=== PATIENT | male | born 1945 | race Caucasian/White ===

== ENCOUNTER → 2018-02-19 16:49 | Outpatient (CLI) | payer MEDICARE ==
[2015-10-21 08:33] VITALS: BMI 28.8
[~2018-02-19 16:49] MED LIST: CARDIZEM120 MG PO; FLOMAX0.4 MG PO; GLIMEPIRIDE1 MG PO; GLIMEPIRIDE2 MG PO; JANUMET 50-1,001 TAB PO; LISINOPRIL10 MG PO; LOW DOSE ASPIRI81 M1 PO; MULTIPLE VITAMI1 TA1 PO; NORCO 7.5/325 T1 TA1 PO; PRAVACHOL20 MG PO; ULTRAM50 MG PO; UROCIT-K10 MEQ PO
== END | disposition home or self-care (01) ==
LOC: D.LABREF 16:49
DX: R31.9 Hematuria, unspecified (principal)

== ENCOUNTER 2018-02-28 06:54 | Day surgery (SDC) | payer MEDICARE ==
[~2018-02-28] VITALS: Ht 175.3 cm; Wt 90.3 kg
--- NOTE | ~2018-02-28 | OP ---
PATIENT NAME: SINDHU RICHARD MEDICAL RECORD: [id number] :47 LOCATION:D.OPS ADMISSION DATE: SURGEON: KAIDEN ESPINOSA MD DATE OF OPERATION: 02/28/2018 SURGEON: Kaidne Espinosa MD ANESTHESIA: MAC by Breann Teresa CRNA. DIAGNOSIS: Gross hematuria. PROCEDURE: Cystoscopy. FINDINGS: Obstructive BPH with median lobe obstruction. Prominent prosthetic veins and intraprostatic stones seen. Single ureteral orifices bilaterally in the bladder. No bladder tumors were seen. Large quantities of stone debris was seen in the bladder. BLOOD LOSS: None. CLINICAL HISTORY: This is a 72-year-old male, who was referred with gross hematuria. He has a CT scan of the abdomen and pelvis pending. He does have a history of kidney stones, which were treated in the past by Dr. Blackburn with lithotripsy. As part of his hematuria workup, he is coming to have cystoscopy done today. He is not allergic to any medications and he was given Ancef edge bonder to the OR. He complained of left flank pain, which began recently. DESCRIPTION OF PROCEDURE: We gave the patient IV sedation. He was then placed into dorsal lithotomy position and prepped and draped. A 17-Urdu cystoscope with 30-degree lens was used for visualization. Penile urethra showed no strictures. Prostatic urethra shows no enlargement of the lateral lobes. However, the prostatic urethra was quite vascular. There were stones seen within the urethral submucosa. The bladder neck was quite tall and obstructive. Going into the bladder, there were single ureteral orifices on each side. No bladder tumors were seen. A large quantity of stone debris was seen in the floor of the bladder. This was irrigated out of the bladder using an Ellik evacuator. The bladder was then emptied through the scope after we looked in once more to verify that no further stone particles were in the bladder. The scope was then removed. The patient does have a CT scan of the abdomen and pelvis pending to determine what type of stone burden he has. I have started him on tamsulosin for both stone passage and for BPH as well as [place] for pain control for renal colic. TRANSINT:[id number] Voice Confirmation ID: [id number] DOCUMENT ID: [id number] KAIDEN ESPINOSA MD at 2544 CC: [id number] DICTATION DATE: 02/28/18 1305 SENIOR SOLUTIONS CONSULTANT: 02/28/18 1313 [facility] 02/28/18 [place] [id number] [place] [id number]
[~2018-02-28 06:54] MED LIST changes: -FLOMAX0.4 MG PO; -NORCO 7.5/325 T1 TA1 PO; -ULTRAM50 MG PO; -UROCIT-K10 MEQ PO
[2018-02-28 07:12] LABS: HEMOGLOBIN 13.7 g/dL (13.5-17.5); MCH 30.7 pg (26.0-34.0); MCHC 34.3 g/dL (31.0-37.0); MCV 89.7 fL (80.0-100.0); MEAN PLATELET VOLUME 11.5 fL (7.4-10.4); RBC 4.46 10x6/uL (4.20-6.10); RDW 13.5 % (11.5-14.5)
[2018-02-28 07:51] VITALS: BP 128/67; Ht 175.3 cm; Wt 90.3 kg
[2018-02-28 08:10] LABS: ANION GAP 14.9 mmol/L (8-16); CALCIUM 9.1 mg/dL (8.5-10.1); CARBON DIOXIDE 26.5 mmol/L (21.0-32.0); CREATININE - SERUM 1.6 mg/dL (0.6-1.3); POTASSIUM - SERUM 4.4 mmol/L (3.5-5.1)
[2018-03-08 10:24] LABS: CALCULI - AMMONIUM ACID URATE 100 % (()); CALCULI - COMMENT Note: (())
[2018-05-01] MEDS ORDERED: UROCIT-K10 MEQ PO (15:37)
[2018-05-01] MEDS ORDERED: ULTRAM50 MG PO (15:38)
== END 2018-02-28 14:30 | disposition home or self-care (01) ==
LOC: D.OPS 06:54 → D.PAN 09:15 → D.OPS 09:30 → D.PAN 09:45 → D.OPS 14:30
PROVIDERS: Anesthesiology; Urology
DX: N40.1 Benign prostatic hyperplasia with lower urinary tract symptoms (principal); N13.8 Other obstructive and reflux uropathy; R31.0 Gross hematuria; N21.0 Calculus in bladder

== ENCOUNTER → 2018-03-01 13:08 | Outpatient (CLI) | payer MEDICARE ==
[2018-02-28 07:51] VITALS: BMI 29.4
[~2018-03-01 13:08] MED LIST changes: +FLOMAX0.4 MG PO; +NORCO 7.5/325 T1 TA1 PO; +ULTRAM50 MG PO; +UROCIT-K10 MEQ PO
== END | disposition home or self-care (01) ==
LOC: D.CT 13:00
DX: R31.0 Gross hematuria (principal)

== ENCOUNTER 2018-03-06 08:28 | Day surgery (SDC) | payer MEDICARE ==
[~2018-03-06] VITALS: Ht 175.3 cm; Wt 90.3 kg
--- NOTE | ~2018-03-06 | OP ---
PATIENT NAME: SINDHU RICHARD MEDICAL RECORD: [id number] :47 LOCATION:D.[facility] ADMISSION DATE: SURGEON: JADON ESPINOSA MD DATE OF OPERATION: 03/06/2018 SURGEON: Jadon Espinosa MD ANESTHESIA: General anesthesia by Romeo Bruner CRNA. DIAGNOSIS: Left 2 cm renal stone. PROCEDURE: Cystoscopy, left retrograde pyelogram, left ureteral stent insertion 6-Kyrgyz x 26 cm with string attached. FINDINGS: Radiolucent left renal stone with left hydronephrosis. BLOOD LOSS: None. CLINICAL HISTORY: This is a 72-year-old male, who was initially being investigated for gross hematuria. On cystoscopy, he was found to have an obstructive prostate with large prostatic veins. He did have a CT scan obtained and this showed a 2 cm stone in the left renal pelvis causing UPJ obstruction. He comes today to have a left ureteral stent inserted. This is to relieve his obstruction and relieve his pain. Eventually, he would require a PCNL if we cannot get the stone removed any other way. He is not allergic to any medications. He was given Ancef loss prevention associate to the OR. DESCRIPTION OF PROCEDURE: The patient was given general anesthetic. He was placed in the dorsal lithotomy position and prepped and draped. Preoperative fluoroscopy did not reveal any radiodense stone in the left renal region. A 21-Kyrgyz cystoscope with 30-degree lens was used for visualization. No penile urethral strictures were seen. Obstructive BPH was seen. The left ureteral orifice was visualized. We inserted an open-ended ureteral catheter into the left ureteral orifice and retrograde pyelogram was performed by injecting diluted contrast. Hydronephrosis was seen in the left renal pelvis, but I did not visualize a stone. We continued to inject more contrast and eventually we could see the stone as a rectangular shaped filling defect against the contrast. Through the lumen of the ureteral catheter, we inserted a Sensor wire up in the renal pelvis. The ureteral catheter was then removed, leaving the wire in place. Over the wire, we inserted the 6-Kyrgyz x 26 cm ureteral stent. Once the stent was in correct position, we withdrew the wire to allow the proximal end of the stent to coil in the renal pelvis. The distal end of the stent was pushed into the bladder using a pusher. The wire was then entirely removed. The bladder was then emptied through the scope and then the scope was removed. The string on the distal end of the stent is maintained. It hangs out of the urethra. It was tied to itself in a knot and cut shorter. The patient will be awakened and brought to recovery room. I will start him on potassium citrate to dissolve a potential uric acid stone. TRANSINT:[id number] Voice Confirmation ID: [id number] DOCUMENT ID: [id number] OPERATIVE REPORT [id number] HILARY,JADON FREEMAN MD at 1131 CC: [id number] DICTATION DATE: 03/06/18 1042 BODY COMPONENT ENGINEER: 03/06/18 1111 REG [facility] [address] [place] [address]
[~2018-03-06 08:28] MED LIST changes: -FLOMAX0.4 MG PO; -NORCO 7.5/325 T1 TA1 PO; -ULTRAM50 MG PO; -UROCIT-K10 MEQ PO
[2018-03-06 09:02] LABS: HEMATOCRIT 37.8 % (42.0-54.0); HEMOGLOBIN 12.5 g/dL (13.5-17.5); MCH 30.3 pg (26.0-34.0); MCHC 33.1 g/dL (31.0-37.0); MCV 91.5 fL (80.0-100.0); RBC 4.13 10x6/uL (4.20-6.10); RDW 13.2 % (11.5-14.5); WBC 11.1 10x3/uL (4.8-10.8)
[2018-03-06 09:09] LABS: ANION GAP 13.9 mmol/L (8-16); CALCIUM 8.8 mg/dL (8.5-10.1); CREATININE - SERUM 1.6 mg/dL (0.6-1.3); POTASSIUM - SERUM 4.9 mmol/L (3.5-5.1)
[2018-03-06] MEDS ORDERED: FLOMAX0.4 MG PO (09:24)
[2018-03-06 09:26] VITALS: Ht 175.3 cm; Wt 90.3 kg
[2018-05-01] MEDS ORDERED: UROCIT-K10 MEQ PO (15:37)
[2018-05-01] MEDS ORDERED: ULTRAM50 MG PO (15:38)
== END 2018-03-06 12:40 | disposition home or self-care (01) ==
LOC: D.OPS 08:28 → D.PAN 10:15 → D.OPS 10:15
PROVIDERS: Anesthesiology
DX: N13.2 Hydronephrosis with renal and ureteral calculous obstruction (principal); Z01.812 Encounter for preprocedural laboratory examination

== ENCOUNTER → 2018-03-12 17:55 | Outpatient (CLI) | payer MEDICARE ==
[2018-03-06 09:26] VITALS: BMI 29.4
[~2018-03-12 17:55] MED LIST changes: +FLOMAX0.4 MG PO; +NORCO 7.5/325 T1 TA1 PO; +ULTRAM50 MG PO; +UROCIT-K10 MEQ PO
== END | disposition home or self-care (01) ==
LOC: D.LABREF 17:55
DX: N39.0 Urinary tract infection, site not specified (principal)

== ENCOUNTER → 2018-04-11 08:32 | Outpatient (CLI) | payer MEDICARE ==
[2018-03-06 09:26] VITALS: BMI 29.4
== END | disposition home or self-care (01) ==
LOC: D.CT 08:32
DX: N20.0 Calculus of kidney (principal)

== ENCOUNTER 2018-05-02 05:55 | Day surgery (SDC) | payer MEDICARE ==
[2018-05-01 17:12] LABS: HEMATOCRIT 37.9 % (42.0-54.0); HEMOGLOBIN 12.6 g/dL (13.5-17.5); MCH 29.9 pg (26.0-34.0); MCHC 33.2 g/dL (31.0-37.0); MCV 89.8 fL (80.0-100.0); MEAN PLATELET VOLUME 10.9 fL (7.4-10.4); RBC 4.22 10x6/uL (4.20-6.10); RDW 13.9 % (11.5-14.5); WBC 8.8 10x3/uL (4.8-10.8)
[2018-05-01 18:14] LABS: ANION GAP 12.9 mmol/L (8-16); CALCIUM 9.5 mg/dL (8.5-10.1); CARBON DIOXIDE 29.2 mmol/L (21.0-32.0); CREATININE - SERUM 1.3 mg/dL (0.6-1.3); POTASSIUM - SERUM 5.1 mmol/L (3.5-5.1)
[~2018-05-02] VITALS: Ht 175.3 cm; Wt 83.5 kg
--- NOTE | ~2018-05-02 | OP ---
PATIENT NAME: SINDHU RICHARD MEDICAL RECORD: [id number] :47 [facility] DATE: SURGEON: JADON ESPINOSA MD DATE OF OPERATION: 05/02/2018 SURGEON: Jadon Espinosa MD ANESTHESIA: General anesthesia by Jadon Dick MD DIAGNOSIS: Right renal stone, 12-mm. PROCEDURES: Cystoscopy, right percutaneous nephrolithotomy, removal of the right ureteral stent. FINDINGS: Radiolucent 12-mm stone. BLOOD LOSS: Minimal. CLINICAL HISTORY: This is a 73-year-old male, who initially presented with right flank pain when he had a 20-mm stone obstructing the UP junction. At that time, I placed the right ureteral stent. The stone was radiolucent on fluoroscopy, but it was seen on the CT scan. I assumed that this may be a uric acid stone and I started him on alkalinization of the urine. In spite of being alkalinized, followup CT scan showed reduction in stone size to 12mm. He is insistent that he cannot tolerate the potassium citrate medication. He wished to have the stone surgically removed. Therefore, he is coming to have a percutaneous nephrolithotomy to remove the stone. He is not allergic to any medications. He was given Ancef electronic device repairer to the OR. Earlier this morning, Dr. Smith, provided access via a mid pole nephroureteral tube insertion. The tube went down into the bladder. DESCRIPTION OF PROCEDURE: The patient was given induction of general anesthesia while he was in supine position on the stretcher. His legs were then frog legged and then we prepped and draped him. A rigid cystoscope was used. We went into the bladder and I tried to pull the distal end of the nephroureteral access catheter out through the urethra. However, the catheter seems rather short in length and it would not come out. I therefore abandoned further attempts to remove the catheter. The stent that I placed initially is still in place. We then turned him into prone position on gel rolls holding his sides. All pressure points were padded. He was then prepped and draped. The nephroureteral catheter was accessed using an Amplatz Super Stiff wire. This went down into the bladder. The nephroureteral catheter was then completely removed and discarded. On either side of the Super Stiff wire, a 1-cm incision was made using #15 blade. We then used a dual lumen catheter, which went down into the proximal ureter. Through the second lumen, a Sensor wire was placed down into the bladder. Once the [address], the dual lumen catheter was removed. The 2 wires were remaining in place. We clamped the sensor wire to the drapes as a safety wire. We worked over the Super Stiff wire. The NephroMax tract dilation balloon was inserted and the tract was dilated with 16 atmospheres of pressure. The sheath was then slid down into the renal pelvis. The tract dilation balloon was then deflated and removed entirely. The nephroscope was then introduced. We immediately saw the large stone. A FashionGuide bwbj-E-aqlkji basket was placed around the stone and the stone was entirely removed. The stone is not 20-mm anymore and it seems to be closer to 12 mm. Therefore, this is a uric acid stone, which has partly dissolved with our OPERATIVE REPORT [id number] HILARY,CRISTI potassium citrate treatment. His original CT suggested that there may be other stones in the lower pole. I looked in the upper and lower pole calices and I could not find any other stones. There were some blood clots with some tiny specks of stones incorporated in the blood clot. These were all suctioned out using the [employer] LithoClast ultrasonic modality. At the end of the procedure, I could see no further stones. I suspect that these other stones have already dissolved. Fluoroscopy throughout the case could find no radiodense stones. At this point, I placed a grasping forceps on the stent and removed it entirely. It was sent to pathology for identification only. The scope was then removed. A 24-Upper Sorbian nephrostomy tube was then inserted over the Super Stiff wire. Once the fluoroscopy verified the nephrostomy tube was to be within the renal pelvis and all the wires were removed entirely. The working sheath was also removed. The nephrostomy tube was tied down to the skin using a 2-0 nylon suture. Dressings were applied and the nephrostomy tube was put to bag drainage. The patient will be placed in the hospital for observation. I plan to discharge him from the hospital in a day or so after we remove the nephrostomy tube. TRANSINT:[id number] Voice Confirmation ID: [id number] DOCUMENT ID: [id number] JADON ESPINOSA MD at 1700 CC: [id number] DICTATION DATE: 05/02/18 1546 GROUNDHAND: 05/02/18 1620 REG [facility] [address] [place] [id number]
--- NOTE | ~2018-05-02 | HEMODYNAMI ---
PATIENT:WILLARD RICHARD MEDICAL RECORD: [id number] : 47 LOCATION:MIC ADMISSION DATE: 05/02/18 Generatedon:05/02/201811:07 Patient name: WILLARD RICHARD Patient #: [id number] SSN: DO B: 1945 Date of study: 05/02/2018 Page: Of Hemodynamic Procedure Report Patient Data Patient Demographics Procedure consent was obtained First Name: WILLARD Gender: Male Last Name: HILARY : 1945 Middle Initial: A Age: 73 year(s) Patient #: [id number] Race: Unknown Additional ID: [id number] Contact details [address]: [address] [place] [address] State: [place] City: [place] Zip code: [address] Past Medical History Allergies: No known allergies Admission Admission Data Admission Date: 05/02/2018 Admission Time: 8:00 Height (in.): 69 BSA: 2.06 (m2) Height (cm.): 175.26 BMI: 29.39 (kg/m2) Weight (lbs.): 199 Weight (kg.): 90.26 Procedure Procedure Types Cath Procedure Peripheral Cath Diagnostic Procedure Nephro Perc Neph Uret Cath Procedure Description Procedure Date Procedure Date: 05/02/2018 Procedure Start Time: 10:43 Procedure Staff Name Function Suyapa Broderick RT Silk Finisher Regino Ellis RT Scrub Willard Smith MD Performing Physician Shanon Miles RN Nurse Arlene Rodriguez RN Nurse Procedure Data Cath Procedure Fluoroscopy Diagnostic fluoroscopy Total fluoroscopy Time: 1.9 time: 1.9 min min Diagnostic fluoroscopy Total fluoroscopy dose: 105 dose: 105 mGy mGy Contrast Material Contrast Material Type Amount (ml) Isovue 300 12 Procedure Medications Medication Administration Route Dosage Oxygen etCO2 Nasal cannula 4 l/min Lidocaine 1% added to field 20 Heparin Flush Bag added to field 1 bags (1000units/500ml NS) Versed I.V. 2 mg Fentanyl I.V. 50 mcg unlisted medication I.V. 1 g Fentanyl I.V. 50 mcg Hemodynamics Rest BSA: 2.06 (m2) O2 Consumption: Estimated: 247.48 (ml/min) O2 Consumption indexed : Estimated:120.14 (ml/min/m) Heart Rate: 82 (bpm) Snapshots Pre Cath Intra NCS Post Cath Vital Signs Time Heart Resp SPO2 etCO2 NIBP Rhythm Pain Sedation Rate (ipm) (%) (mmHg) (mmHg) Status Level (bpm) 10:23:26 83 15 98 37.5 111/70(93) NSR 0 (11) 10(A) , No pain 10:27:36 80 14 98 31.5 114/61(86) NSR 0 (11) 10(A) , No pain 10:31:48 80 12 97 31.5 112/65(83) NSR 0 (11) 10(A) , No pain 10:36:00 82 12 97 32.3 117/63(94) NSR 0 (11) 10(A) , No pain 10:40:14 83 14 97 32.3 117/65(86) NSR 0 (11) 10(A) , No pain 10:44:28 84 16 97 34.5 123/67(92) NSR 0 (11) 10(A) , No pain 10:48:42 79 17 96 25.5 112/59(86) NSR 0 (11) 8(A) , No pain 10:52:54 81 14 95 23.3 108/63(85) NSR 0 (11) 8(A) , No pain 10:57:06 80 10 95 25.5 115/65(80) NSR 0 (11) 8(A) , No pain Medications Time Medication Route Dose Verified Delivered Reason Notes Effec tiveness by by 10:45:17 Oxygen etCO2 4 Willard Jacobs Per Nasal l/min Luis Rodriguez RN protocol cannula 10:45:30 Lidocaine 1% added 20ml Willard Lamar Per to vial Luis Smith protocol field MD LOMELI 10:45:43 Heparin Flush added 1 Willard Lamar Per Bag to bags Luis Smith protocol (1000units/500ml field MD LOMELI NS) 10:45:57 Versed I.V. 2 mg Willard Jacobs for Fully awake @ Luis Rodriguez RN sedation 10:50:12 10:46:08 Fentanyl I.V. 50 Willard Jacobs for Fully awake @ [facility] Luis Rodriguez RN sedation 10:50:16 10:46:36 cefipime I.V. 1 g Willard Jacobs Per Luis Rodriguez RN protocol 10:50:04 Fentanyl I.V. 50 Willard Jacobs for [facility] Luis Rodriguez RN sedation Procedure Log Time Note 9:26:01 Patient Height : 69 inches 9:26:05 Patient Weight : 199 lbs 9:26:44 Use device set IR Diagnostic 10:13:12 Regino Ellis RT (R) (CV) sent for patient. Start room use. 10:13:29 Time tracking: Regular hours (M-F 7:00 - 5:00) 10:13:34 Plan of Care:Hemodynamics will remain stable., Cardiac rhythm will remain stable., Comfort level will be maintained., Respiratory function will remain adequate., Patient/ family verbilizes understanding of procedure., Procedure tolerated without complication., Recovers from procedure without complications.. 10:13:40 Patient received from Outpatients to IR Alert and oriented. Tansferred to table in Prone position. 10:13:58 Correct patient and procedure confirmed by team. 10:14:00 Signed procedure consent form obtained from patient. 10:14:01 ECG and BP/O2 sat monitors applied to patient. 10:14:02 Full Disclosure recording started 10:14:03 - 10:14:04 - 10:14:07 H&P Date Dictated: 05/02/2018 H&P Addendum completed by physician on day of procedure. (MUST COMPLETE FOR ALL OUTPATIENTS). 10:14:08 Pre-procedure instructions explained to patient. 10:14:09 Pre-op teaching completed and patient verbalized understanding. 10:14:10 Family in waiting room. 10:14:12 Patient NPO since Midnight. 10:14:23 Patient allergic to No known allergies 10:14:26 Is the patient allergic to Iodine/contrast media? No. 10:14:28 Is patient on blood thinner?No 10:14:32 Patient diabetic? Yes. 10:14:37 If diabetic: On Metformin? No 10:14:41 - 10:14:42 ----Pre-sedation anethsthesia assessment.---- 10:14:45 Previous problem with sedation/anesthesia? No ? 10:14:47 Snore? Yes 10:14:49 Sleep apnea? No 10:14:50 Deviated septum? No 10:14:51 Opens mouth fully? Yes 10:14:53 Sticks out tongue? Yes 10:14:55 Airway obstruction? No ? 10:15:01 Dentures? No ? 10:15:08 IV patent on arrival in right hand with 0.9% NaCl at [facility]. 10:15:10 Alarms reviewed by RVic N. 10:15:10 Sharps counted by scrub and verified by R.N. 10:15:23 LEFT Lumbar area was prepped with chlora-prep and draped in sterile fashion 10:22:15 Vital chart was started 10:22:16 Baseline sample Acquired. 10:40:06 - 10:40:24 KIT, INTRODUCER ACCUSTICK II W/C ([id number]) opened to sterile field. 10:40:25 Tegaderm 4 x 4 (1626W) opened to sterile field. 10:40:26 Sterile Angiographic Pack opened to sterile field. 10:40:27 Bag Decanter (2002S) opened to sterile field. 10:41:19 GLIDE CATHETER 5FR ANGLED 65cm (CG507) opened to sterile field. 10:41:23 - 10:42:49 Physician arrived 10:43:01 --------ALL STOP TIME OUT------ 10:43:02 Final Timeout: patient, procedure, and site verified with staff and physician. All members of the team are in agreement. 10:43:24 Procedure started. 10:43:30 Local anesthetic to Abdominal area with Lidocaine 1% by Willard Smith MD.INITIAL ACCESS ONLY 10:45:17 Oxygen 4 l/min etCO2 Nasal cannula was administered by Arlene Rodriguez RN; Per protocol; 10:45:30 Lidocaine 1% 20ml vial added to field was administered by Willard Smith MD; Per protocol; 10:45:43 Heparin Flush Bag (1000units/500ml NS) 1 bags added to field was administered by Willard Smith MD; Per protocol; 10:45:57 Versed 2 mg I.V. was administered by Arlene Rodriguez RN; for sedation; 10:46:08 Fentanyl 50 mcg I.V. was administered by Arlene Rodriguez RN; for sedation; 10:46:36 cefipime 1 g I.V. was administered by Arlene Rodriguez RN; Per protocol ; 10:50:04 Fentanyl 50 mcg I.V. was administered by Arlene Rodriguez RN; for sedation; 10:50:12 Effectiveness of Versed delivered @ 10:45:57 is: Fully awake 10:50:16 Effectiveness of Fentanyl delivered @ 10:46:08 is: Fully awake 10:50:30 PARAMHOSSEINBHAVESH .035 145 glide wire ([id number]) opened to sterile field. 10:51:59 Procedure ended.(Physican Out) 10:55:23 Fluoroscopy time 01.90 minutes. 10:55:29 Fluoroscopy dose: 105 mGy 10:55:29 Flurop Dose total: 105 10:55:33 Contrast amount:Isovue 300 12ml. 10:55:35 Procedure and supply charges have been captured, reviewed, submitted an d are correct. 10:57:10 Report given to Outpatients. 10:57:36 Vital chart was stopped 10:57:40 Full Disclosure recording stopped Device Usage Item Name Manufacture Quantity Catalog Hospital Part Current Minimal Lot# / Number Charge Number Stock Stock Serial# Code [id number] 1 [id number] 5 INTRODUCER Scientific ACCUSTICK II W/C ([id number]) Tegaderm 4 x 3M 1 1626W [id number] [id number] 5 4 (1626W) Sterile Cardinal 1 [id number] [id number] 719229 5 Angiographic Health Pack Bag Decanter Microtek 1 2001S [id number] 04167 [id number] 5 (2001S) [employer] GLIDE Terumo 1 CG507 641905 [id number] 5 CATHETER 5FR ANGLED 65cm (CG507) [employer] 1 [id number] 366769 [id number] 5 [id number] .035 145 glide wire ([id number]) Signature Audit Wendel Stage Time Signature Unsigned Intra-Procedure 05/02/[address] [facility] RT 10:57:33 AM RT(R) (R) (CV) 05/02/2018 11:07:09 AM Intra-Procedure 05/02/2018 Suyapa Broderick 11:07:54 AM RT(R) [place] [id number] [place] [address]
[~2018-05-02 05:55] MED LIST changes: -NORCO 7.5/325 T1 TA1 PO
[2018-05-02 07:18] LABS: APTT 25.1 SECONDS (22.8-39.4); INR 0.96 (0.85-1.17); PROTIME 12.4 SECONDS (11.6-15.0)
[2018-05-02 07:57] VITALS: BP 104/49; BMI 29.6
[2018-05-02 17:52] VITALS: BP 114/62
[2018-05-02 17:55] VITALS: BP 114/62; BMI 27.2
[2018-05-02 18:03] VITALS: BP 114/62; BMI 27.2
[2018-05-02 23:12] VITALS: BP 109/56
[2018-05-03 04:44] VITALS: BP 100/57
[2018-05-03 08:36] VITALS: BP 99/52
[2018-05-03 10:41] VITALS: Ht 175.3 cm; Wt 83.5 kg
[2018-05-03 12:07] VITALS: BP 109/51
[2018-05-03] MEDS ORDERED: NORCO 7.5/325 T1 TA1 PO (16:28)
[2018-05-10 16:16] LABS: CALCULI - AMMONIUM ACID URATE 25 % (()); CALCULI - COLOR Tan (()); CALCULI - SIZE 12x8x5 mm (()); CALCULI - URIC ACID 70 % (()); CALCULI - WEIGHT 474.4 mg (())
== END 2018-05-03 17:30 | disposition home or self-care (01) ==
LOC: D.MS 05:55 → D.OPS 05:55 → D.PAN 07:30 → D.OPS 08:00 → D.PAN 08:00 → D.MS 17:48 → D.OPS 05-03 17:30
PROVIDERS: Anesthesiology; Specialist; Urology
DX: N20.0 Calculus of kidney (principal); Z01.812 Encounter for preprocedural laboratory examination

== ENCOUNTER → 2018-05-14 16:50 | Outpatient (CLI) | payer MEDICARE ==
[2018-05-03 10:41] VITALS: BMI 27.1
[~2018-05-14 16:50] MED LIST changes: +NORCO 7.5/325 T1 TA1 PO; +POTASSIUM CHLO10 ME1; +ZYLOPRIM100 MG PO
== END | disposition home or self-care (01) ==
LOC: D.LABREF 16:50
DX: R31.0 Gross hematuria (principal); D72.829 Elevated white blood cell count, unspecified

== ENCOUNTER 2018-05-16 07:31 | Inpatient (IN) | payer MEDICARE ==
[2018-05-15 12:47] LABS: HEMATOCRIT 28.2 % (42.0-54.0); HEMOGLOBIN 9.3 g/dL (13.5-17.5); MCH 29.6 pg (26.0-34.0); MCV 89.8 fL (80.0-100.0); MEAN PLATELET VOLUME 10.5 fL (7.4-10.4); RBC 3.14 10x6/uL (4.20-6.10); RDW 14.7 % (11.5-14.5); WBC 19.8 10x3/uL (4.8-10.8)
[2018-05-15 12:57] LABS: ANION GAP 13.3 mmol/L (8-16); CALCIUM 9.1 mg/dL (8.5-10.1); CARBON DIOXIDE 25.4 mmol/L (21.0-32.0); CREATININE - SERUM 1.5 mg/dL (0.6-1.3); POTASSIUM - SERUM 5.7 mmol/L (3.5-5.1)
[~2018-05-16] VITALS: Ht 175.3 cm; Wt 83.5 kg
[~2018-05-16 07:31] MED LIST changes: -POTASSIUM CHLO10 ME1; -ZYLOPRIM100 MG PO
[2018-05-16 09:13] VITALS: BP 93/46; BMI 27.2
[2018-05-16 09:21] VITALS: BP 93/46; BMI 27.2
[2018-05-16 11:44] VITALS: BP 116/65; BMI 27.2
[2018-05-16 12:00] VITALS: BP 116/55
[2018-05-16 18:19] VITALS: BP 111/53
[2018-05-16 21:45] VITALS: BP 95/47
[2018-05-17 05:09] VITALS: BP 100/53
[2018-05-17 06:26] LABS: ALBUMIN 2.9 g/dL (3.4-5.0); ANION GAP 14.5 mmol/L (8-16); BILIRUBIN - TOTAL 0.84 mg/dL (0.2-1.3); CALCIUM 8.6 mg/dL (8.5-10.1); POTASSIUM - SERUM 5.5 mmol/L (3.5-5.1); PROTEIN - SERUM 6.9 g/dL (6.4-8.2)
[2018-05-17 06:27] LABS: CREATININE - SERUM 2.2 mg/dL (0.6-1.3)
[2018-05-17 08:14] VITALS: BP 87/47
[2018-05-17 11:56] VITALS: BP 115/61
[2018-05-17 14:32] LABS: BASOPHILS 0.2 % (0-2); EOSINOPHILS 0.4 % (0-7); HEMATOCRIT 25.6 % (42.0-54.0); HEMOGLOBIN 8.4 g/dL (13.5-17.5); IMMATURE GRANULOCYTES 0.4 % (0-5); LYMPHOCYTES 7.2 % (15-50); MCH 29.2 pg (26.0-34.0); MCHC 32.8 g/dL (31.0-37.0); MCV 88.9 fL (80.0-100.0); MEAN PLATELET VOLUME 11.6 fL (7.4-10.4); MONOCYTES 7.6 % (2-11); NEUTROPHILS 84.2 % (40-80); PLATELET COUNT 176 10x3/uL (130-400); RBC 2.88 10x6/uL (4.20-6.10); RDW 15.1 % (11.5-14.5); WBC 19.8 10x3/uL (4.8-10.8)
[2018-05-17 14:50] VITALS: Ht 175.3 cm; Wt 83.5 kg
[2018-05-17 20:00] VITALS: BP 124/52
[2018-05-18 04:00] VITALS: BP 119/53
[2018-05-18 05:37] LABS: BASOPHILS 0.1 % (0-2); EOSINOPHILS 1.3 % (0-7); HEMATOCRIT 22.4 % (42.0-54.0); IMMATURE GRANULOCYTES 0.2 % (0-5); LYMPHOCYTES 9.4 % (15-50); MCH 29.2 pg (26.0-34.0); MCHC 32.6 g/dL (31.0-37.0); MCV 89.6 fL (80.0-100.0); MEAN PLATELET VOLUME 10.7 fL (7.4-10.4); MONOCYTES 6.1 % (2-11); NEUTROPHILS 82.9 % (40-80); PLATELET COUNT 173 10x3/uL (130-400); RDW 14.8 % (11.5-14.5)
[2018-05-18 05:41] LABS: HEMOGLOBIN 7.8 g/dL (13.5-17.5); WBC 13.5 10x3/uL (4.8-10.8)
[2018-05-18 05:57] LABS: ALBUMIN 2.3 g/dL (3.4-5.0); BILIRUBIN - TOTAL 0.4 mg/dL (0.2-1.3); CALCIUM 8.1 mg/dL (8.5-10.1); CREATININE - SERUM 1.9 mg/dL (0.6-1.3); PROTEIN - SERUM 6.2 g/dL (6.4-8.2); URIC ACID 6.4 mg/dL (2.6-7.2)
[2018-05-18 05:58] LABS: ANION GAP 12.4 mmol/L (8-16); POTASSIUM - SERUM 4.4 mmol/L (3.5-5.1)
[2018-05-18 09:25] VITALS: BP 102/52
[2018-05-18 19:58] VITALS: BP 158/80
[2018-05-19] VITALS: BP 111/58
[2018-05-19 04:00] VITALS: BP 119/62
[2018-05-19 05:49] LABS: BASOPHILS 0.1 % (0-2); EOSINOPHILS 2.1 % (0-7); IMMATURE GRANULOCYTES 0.3 % (0-5); LYMPHOCYTES 7.3 % (15-50); MCH 29.4 pg (26.0-34.0); MCHC 33.3 g/dL (31.0-37.0); MCV 88.2 fL (80.0-100.0); MEAN PLATELET VOLUME 10.5 fL (7.4-10.4); MONOCYTES 9.3 % (2-11); NEUTROPHILS 80.9 % (40-80); PLATELET COUNT 176 10x3/uL (130-400); RDW 14.5 % (11.5-14.5); WBC 11.7 10x3/uL (4.8-10.8)
[2018-05-19 05:51] LABS: RBC 3.06 10x6/uL (4.20-6.10)
[2018-05-19 06:19] LABS: % SATURATION 5 % (15-55); IRON 21 ug/dl (35-150); TOTAL IRON BIND CAPACITY 360 ug/dl (260-445); UNSAT IRON BIND CAPACITY 339 ug/dl (150-375)
[2018-05-19 07:01] LABS: ALBUMIN 2.5 g/dL (3.4-5.0); ANION GAP 14.6 mmol/L (8-16); BILIRUBIN - TOTAL 0.67 mg/dL (0.2-1.3); CALCIUM 7.9 mg/dL (8.5-10.1); CARBON DIOXIDE 25.6 mmol/L (21.0-32.0); POTASSIUM - SERUM 4.2 mmol/L (3.5-5.1); PROTEIN - SERUM 5.8 g/dL (6.4-8.2)
[2018-05-19 07:05] LABS: CREATININE - SERUM 1.4 mg/dL (0.6-1.3)
[2018-05-19 09:40] VITALS: BP 114/45
[2018-05-19 12:00] VITALS: BP 124/66
[2018-05-19 16:00] VITALS: BP 12/68
[2018-05-19 21:11] VITALS: BP 122/64
[2018-05-20] VITALS: BP 124/60
[2018-05-20 06:04] LABS: BASOPHILS 0.2 % (0-2); HEMATOCRIT 27.1 % (42.0-54.0); HEMOGLOBIN 8.8 g/dL (13.5-17.5); IMMATURE GRANULOCYTES 0.2 % (0-5); MCHC 32.5 g/dL (31.0-37.0); MCV 89.4 fL (80.0-100.0); MEAN PLATELET VOLUME 10.8 fL (7.4-10.4); MONOCYTES 10.6 % (2-11); PLATELET COUNT 187 10x3/uL (130-400); RBC 3.03 10x6/uL (4.20-6.10); RDW 14.6 % (11.5-14.5)
[2018-05-20 06:05] VITALS: BP 123/56
[2018-05-20 06:15] LABS: ALBUMIN 2.3 g/dL (3.4-5.0); ANION GAP 14.4 mmol/L (8-16); BILIRUBIN - TOTAL 0.44 mg/dL (0.2-1.3); CALCIUM 8.6 mg/dL (8.5-10.1); CARBON DIOXIDE 25.9 mmol/L (21.0-32.0); CREATININE - SERUM 1.3 mg/dL (0.6-1.3); POTASSIUM - SERUM 4.3 mmol/L (3.5-5.1); PROTEIN - SERUM 6.6 g/dL (6.4-8.2)
[2018-05-20 08:38] VITALS: BP 126/62
[2018-05-20 12:50] VITALS: BP 129/61
[2018-05-20 16:34] VITALS: BP 122/59
[2018-05-20 21:01] VITALS: BP 129/66
[2018-05-21 05:52] VITALS: BP 130/56
[2018-05-21 05:57] LABS: BASOPHILS 0.2 % (0-2); EOSINOPHILS 3.1 % (0-7); HEMATOCRIT 27.7 % (42.0-54.0); IMMATURE GRANULOCYTES 0.1 % (0-5); LYMPHOCYTES 9.9 % (15-50); MCH 29.4 pg (26.0-34.0); MCHC 32.5 g/dL (31.0-37.0); MCV 90.5 fL (80.0-100.0); MEAN PLATELET VOLUME 10.6 fL (7.4-10.4); MONOCYTES 7.2 % (2-11); NEUTROPHILS 79.5 % (40-80); PLATELET COUNT 211 10x3/uL (130-400); RBC 3.06 10x6/uL (4.20-6.10); RDW 14.4 % (11.5-14.5); WBC 10.4 10x3/uL (4.8-10.8)
[2018-05-21 06:39] LABS: ALBUMIN 2.2 g/dL (3.4-5.0); ANION GAP 11.8 mmol/L (8-16); BILIRUBIN - TOTAL 0.34 mg/dL (0.2-1.3); CALCIUM 8.4 mg/dL (8.5-10.1); CARBON DIOXIDE 26.6 mmol/L (21.0-32.0); CREATININE - SERUM 1.3 mg/dL (0.6-1.3); POTASSIUM - SERUM 4.4 mmol/L (3.5-5.1); PROTEIN - SERUM 6.6 g/dL (6.4-8.2)
[2018-05-21 09:44] VITALS: BP 128/66
[2018-05-21] MEDS ORDERED: ZYLOPRIM100 MG PO (11:08)
[2018-05-21] MEDS ORDERED: POTASSIUM CHLO10 ME1 (11:09)
== END 2018-05-21 14:04 | disposition home health service (06) | DRG 872 ==
LOC: D.OPS 07:31 → D.PAN 09:30 → D.MS 10:07 → D.OPS 10:08 → D.MS 10:08
PROVIDERS: Anesthesiology; Internal Medicine Nephrology; Student in an Organized Health Care Education/Training Program
PROC: 05HC33Z Insertion of Infusion Device into Left Basilic Vein, Percutaneous Approach (ICD-10-PCS; principal; 2018-05-21)
PROC: B54NZZA Ultrasonography of Left Upper Extremity Veins, Guidance (ICD-10-PCS; 2018-05-21)
DX: A41.81 Sepsis due to Enterococcus (principal); N13.8 Other obstructive and reflux uropathy; N17.9 Acute kidney failure, unspecified; N30.91 Cystitis, unspecified with hematuria; N40.1 Benign prostatic hyperplasia with lower urinary tract symptoms; R33.8 Other retention of urine; E11.9 Type 2 diabetes mellitus without complications; I10 Essential (primary) hypertension; E78.5 Hyperlipidemia, unspecified; N32.89 Other specified disorders of bladder; E87.5 Hyperkalemia; D64.9 Anemia, unspecified

== ENCOUNTER → 2018-05-27 14:51 | Outpatient (CLI) | payer MEDICARE ==
[2018-05-17 14:50] VITALS: BMI 27.1
[~2018-05-27 14:51] MED LIST changes: +POTASSIUM CHLO10 ME1; +ZYLOPRIM100 MG PO
[2018-05-27 15:34] LABS: BASOPHILS 0.2 % (0-2); EOSINOPHILS 3.3 % (0-7); HEMATOCRIT 32.1 % (42.0-54.0); HEMOGLOBIN 10.1 g/dL (13.5-17.5); IMMATURE GRANULOCYTES 0.6 % (0-5); LYMPHOCYTES 17.5 % (15-50); MCH 29.3 pg (26.0-34.0); MCHC 31.5 g/dL (31.0-37.0); NEUTROPHILS 73.4 % (40-80); RBC 3.45 10x6/uL (4.20-6.10); RDW 14.5 % (11.5-14.5); WBC 8.3 10x3/uL (4.8-10.8)
[2018-05-27 15:37] LABS: PLATELET COUNT 370 10x3/uL (130-400)
[2018-05-27 15:41] LABS: CREATININE - SERUM 1.2 mg/dL (0.6-1.3)
== END | disposition home or self-care (01) ==
LOC: D.LABREF 14:51
PROVIDERS: Student in an Organized Health Care Education/Training Program
DX: N30.01 Acute cystitis with hematuria (principal)

== ENCOUNTER 2018-07-26 05:53 | Day surgery (SDC) | payer MEDICARE ==
[2018-07-25 09:47] LABS: HEMOGLOBIN 12.4 g/dL (13.5-17.5); MCH 28.8 pg (26.0-34.0); MCHC 32.6 g/dL (31.0-37.0); MCV 88.4 fL (80.0-100.0); RBC 4.3 10x6/uL (4.20-6.10); RDW 14.7 % (11.5-14.5); WBC 5.6 10x3/uL (4.8-10.8)
[2018-07-25 09:54] LABS: ANION GAP 16.5 mmol/L (8-16); CARBON DIOXIDE 26.2 mmol/L (21.0-32.0); CREATININE - SERUM 1.1 mg/dL (0.6-1.3); POTASSIUM - SERUM 4.7 mmol/L (3.5-5.1)
[~2018-07-26] VITALS: Ht 176.5 cm; Wt 83.6 kg
--- NOTE | ~2018-07-26 | OP ---
PATIENT NAME: SINDHU RICHARD MEDICAL RECORD: [id number] :49 LOCATION:[facility] ADMISSION DATE: SURGEON: JADON TAPIA MD DATE OF OPERATION: 07/26/2018 PREOPERATIVE DIAGNOSES: 1. Left inguinal hernia, moderately sized. 2. Gallstones. POSTOPERATIVE DIAGNOSES: 1. Left indirect inguinal hernia, moderately sized. 2. Very large gallstone. 3. Hepatomegaly with some nodularity. 4. Left cord lipoma. PROCEDURES: Laparoscopic cholecystectomy, intraoperative cholangiography without immediate surgeon interpretation, 14-gauge core needle liver biopsies, and open left inguinal hernia repair with mesh, and excision of left cord lipoma. SURGEON: Jadon Tapia MD PADDER: Tina Delatorre APRN BLOOD LOSS: Less than 25 mL. DRAINS: Times 1 (10-Marshallese round, fully fluted, closed system drain). The indication for the liver biopsy was hepatomegaly. The risks, possible complications, and alternatives to the procedure were explained to the patient. He elects to proceed. Discussion specifically included, but was not limited to, bleeding requiring emergency reoperation, infection, intestinal injury, open procedure, mesh infection, chronic pain. OPERATIVE COURSE: The patient was conveyed to the operating room electively on 07/26/2018. General anesthesia was induced by the anesthesia staff. The abdomen and genitals were sterilely prepped and draped. A transverse incision was accomplished in the left groin. A sharp dissection was carried down through skin and subcutaneous tissue as well as Consuelo's fascia. I then cleaned the external oblique aponeurosis of overlying connective tissue. I incised the external oblique aponeurosis along the direction of its fibers. Blunt dissection was performed down through the internal oblique and the transversus abdominis muscles. A preperitoneal pocket was fashioned bluntly. There was no direct sac. No femoral hernia. There was a small indirect sac. This was reduced. The hernia sac was entered. There was no sliding component. No incarceration. I then reperitonealized with a running locking 3-0 Vicryl suture. The cord lipoma was dissected free from the cord structures. I clamped the vascular pedicle to the cord lipoma. I then transected the cord lipoma distal to this. I then ligated the vascular pedicle with a 3-0 Vicryl tie. I then cut 2 ovals out of a polypropylene mesh. The 2 ovals were sutured together, one on top of other, with #1 Surgidac. The mesh was placed in the preperitoneal space. Once I was satisfied with placement of the mesh, I allowed internal oblique and transverse abdominis muscles to come together. These muscles were kept together with multiple interrupted horizontal mattress #0 OPERATIVE REPORT [id number] SINDHU RICHARD. I incorporated a portion of the mesh with these sutures. The external oblique aponeurosis was then closed with running #1 Vicryls. Consuelo's fascia was approximated with interrupted 3-0 Vicryls. The subdermis was approximated with interrupted 3-0 Vicryls. The skin was approximated with a running intracuticular 3-0 Vicryl. Attention was then turned to the laparoscopic cholecystectomy. A transverse incision was accomplished cephalad to the umbilicus. Sharp dissection was carried down to the level of the anterior fascia. Stay sutures of #0 Vicryl were placed on either side of the midline. I then incised the midline. A Cee trocar was then introduced into the peritoneal cavity. CO2 insufflation was begun. Once a sufficient pneumoperitoneum had been achieved, an abdominal survey was undertaken. A 5-mm trocar was inserted in the left upper quadrant. A 5-mm trocar was inserted in the epigastrium. Another 5-mm trocar was inserted far laterally in the right upper quadrant. During insertion of the Cee trocar and all trocars, there appeared to have been no injury to the bowels, any intraperitoneal or retroperitoneal structures. The indication for the liver biopsy was hepatomegaly. Under laparoscopic guidance, I percutaneously accessed the right upper quadrant utilizing a 14-gauge core needle liver biopsy device. Cores were obtained over the convexity of the liver. The biopsy sites were made hemostatic with electrocautery. I then advanced a cholangiogram trocar. I punctured the fundus of the gallbladder and aspirated bile. I then injected dye. Real time cholangiographic images were obtained. These were sent to the radiologist for interpretation. I then withdrew the cholangiogram trocar. I then elevated the gallbladder. Blunt dissection was begun in the triangle of Calot. One cystic artery and one cystic duct were identified. These were clipped multiply and divided between clips. The gallbladder was then excised from its bed in the liver. It was placed within a bag retrieval device and was withdrawn out through the fascial defect above the umbilicus. I had to enlarge this fascial defect due to the very large size of the stone. The 12-mm trocar was reintroduced. CO2 insufflation was resumed. I irrigated and aspirated the right upper quadrant. There was no bleeding even at low pressure of 8. A 10-Marshallese round, fully fluted, closed drainage system was advanced through the lateral most trocar site in the right upper quadrant. All the trocars were removed and the abdomen was desufflated. The fascia above the umbilicus was closed with a running #0 Vicryl suture. The drain was sutured to the skin with 4-0 nylon. The trocar sites were closed with interrupted intracuticular 3-0 Vicryls. The transverse incision above the umbilicus was closed with interrupted 3-0 Vicryl for the deep dermis as well as a running intracuticular 3-0 Vicryl for the skin. Benzoin and Steri-Strips were applied. The patient was then extubated and conveyed to postanesthesia care unit. Because he has had essentially 2 moderately sized operations I am going to keep him in the hospital overnight and I would like for him to have an additional OPERATIVE REPORT [id number] PREBLE,CRISTI dose of intravenous antibiotics. I will plan to remove his drain tomorrow. TRANSINT:[id number] Voice Confirmation ID: [id number] DOCUMENT ID: [id number] 07/30/2018 Edited for branch maker error, [email or web address]. 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
[2018-07-26 06:16] VITALS: BP 114/56; BMI 26.9
[2018-07-26 20:00] VITALS: BP 111/60
[2018-07-27] VITALS (7 sets, daily range): BP systolic 104–118; BP diastolic 56–63; Ht 176.5 cm; Wt 83.6 kg
[2018-07-27 05:42] LABS: BASOPHILS 0.2 % (0-2); EOSINOPHILS 0.3 % (0-7); HEMATOCRIT 34.6 % (42.0-54.0); HEMOGLOBIN 10.6 g/dL (13.5-17.5); IMMATURE GRANULOCYTES 0.2 % (0-5); LYMPHOCYTES 13.1 % (15-50); MCHC 30.6 g/dL (31.0-37.0); MEAN PLATELET VOLUME 10.8 fL (7.4-10.4); MONOCYTES 6.7 % (2-11); NEUTROPHILS 79.5 % (40-80); PLATELET COUNT 154 10x3/uL (130-400); RBC 3.78 10x6/uL (4.20-6.10)
[2018-07-27 05:49] LABS: MCV 91.5 fL (80.0-100.0); WBC 10.4 10x3/uL (4.8-10.8)
[2018-07-27 05:57] LABS: ALBUMIN 3.1 g/dL (3.4-5.0); ALKALINE PHOSPHATASE 39 U/L (46-116); ALT (SGPT) 87 U/L (10-68); BILIRUBIN - TOTAL 0.35 mg/dL (0.2-1.3); CALC OSMOLALITY 282 mosm/kg (275-300); CALCIUM 7.6 mg/dL (8.5-10.1); CARBON DIOXIDE 26.7 mmol/L (21.0-32.0); CHLORIDE - SERUM 105 mmol/L (98-107); GLUCOSE 166 mg/dL (74-106); MAGNESIUM - SERUM 1.8 mg/dL (1.8-2.4); PHOSPHOROUS 3.5 mg/dL (2.5-4.9); POTASSIUM - SERUM 4.6 mmol/L (3.5-5.1); PROTEIN - SERUM 6.7 g/dL (6.4-8.2); SODIUM 139 mmol/L (136-145); UREA NITROGEN 15 mg/dL (7-18); eGFR NON AFRICAN AMERICAN 78 mL/min (90-120)
[2018-07-28 04:15] VITALS: BP 135/59
[2018-07-28 08:11] VITALS: BP 131/76
[2018-07-28 12:00] VITALS: BP 150/65
[2018-07-28 16:00] VITALS: BP 153/78
[2018-07-28] MEDS ORDERED: KEFLEX500 MG PO (18:51)
[2018-07-28] MEDS ORDERED: COLACE100 MG PO (18:52)
[2018-07-28] MEDS ORDERED: HYDROCODON-ACE1 EAC7 PO (18:55)
== END 2018-07-28 19:10 | disposition home or self-care (01) ==
LOC: D.M3 05:53 → D.OPS 05:53 → D.PAN 08:00 → D.OPS 08:00 → D.PAN 11:30 → D.M3 18:20 → D.OPS 07-28 19:10
PROVIDERS: Anesthesiology; Surgery
DX: K40.90 Unilateral inguinal hernia, without obstruction or gangrene, not specified as recurrent (principal); K80.10 Calculus of gallbladder with chronic cholecystitis without obstruction; R16.0 Hepatomegaly, not elsewhere classified; D17.6 Benign lipomatous neoplasm of spermatic cord; K76.0 Fatty (change of) liver, not elsewhere classified; Z01.812 Encounter for preprocedural laboratory examination